=== PATIENT | male | born 1985 | race American Indian/Alaskan Native ===

== ENCOUNTER 2017-07-14 09:28 | Emergency (ER) | payer MEDICAID, OTHER ==
[2017-07-14 09:44] VITALS: BP 124/86; PULSE 84; RESP 18; TEMP 98.5; O2SAT 100; BMI 32.3
--- NOTE | 2017-07-14 10:07 | C.PDOC ---
History Of Present Illness 32 y/o male presents to the ER for evaluation of 2 different bumps on his penis which have been present for the last 2 days. Patient states that he had unprotected sex about 1 and 1/2 weeks ago and he found out that the woman had an STD. Patient denies having fever, abdominal pain, dysuria, hematuria and penile discharge. Time Seen by Provider: 07/14/17 09:37 Chief Complaint (Nursing): Male Genitourinary History Per: Patient History/Exam Limitations: no limitations Onset/Duration Of Symptoms: Days Current Symptoms Are (Timing): Still Present Severity: Moderate Past Medical History Reviewed: Historical Data, Nursing Documentation, Vital Signs Vital Signs: Last Vital Signs Temp 98.5 F 07/14/17 09:35 Pulse 84 07/14/17 09:35 Resp 18 07/14/17 11:04 BP 124/86 07/14/17 09:35 Pulse Ox 100 07/14/17 13:28 - Medical History PMH: No Chronic Diseases Surgical History: No Surg Hx Family History: States: No Known Family Hx - Social History Hx Alcohol Use: Yes Hx Substance Use: No - Immunization History Hx Tetanus Toxoid Vaccination: No Hx Influenza Vaccination: No Hx Pneumococcal Vaccination: No Review Of Systems Except As Marked, All Systems Reviewed And Found Negative. Constitutional: Negative for: Fever, Chills Genitourinary: Positive for: Other (2 bumps on penis). Negative for: Dysuria, Hematuria, Penile Discharge Physical Exam - Physical Exam Appears: Non-toxic, No Acute Distress, Other (comfortable) Skin: Normal Color, Warm Head: Atraumatic, Normacephalic Eye(s): bilateral: Normal Inspection, PERRL Nose: Normal Oral Mucosa: Moist Neck: Supple Chest: Symmetrical Cardiovascular: Rhythm Regular Respiratory: Normal Breath Sounds, No Accessory Muscle Use, No Rales, No Rhonchi , No Wheezing Gastrointestinal/Abdominal: Normal Exam, Soft, No Tenderness Male Genital: Normal Inspection, No Testicular Tenderness, Other (ingrown hair on left side of penis, no vesicular lesions, no warts, no penile discharge) Extremity: Normal ROM Neurological/Psych: Oriented x3, Normal Speech, Normal Cognition, Normal Motor, Normal Sensation ED Course And Treatment O2 Sat by Pulse Oximetry: 100 (RA) Pulse Ox Interpretation: Normal Progress Note: Patient given Rocephin. UA ordered. Patient discharged with prescription for Rocephin and told to follow up with doctor in 1-2 days. Disposition Counseled Patient/Family Regarding: Diagnosis, Need For Followup, Rx Given - Disposition Referrals: [facility] [Outside] Disposition: HOME/ ROUTINE Disposition Time: 10:15 Condition: STABLE Additional Instructions: FOLLOW UP WITH YOUR DOCTOR/CLINIC IN 1-2 DAYS USE MEDICATION DIRECTED - NO ALCOHOL WHILE TAKING FLAGYL HAVE SEXUAL PARTNER(S) TESTED/TREATED NO SEX FOR 1 WEEK RETURN TO ER IF SYMPTOMS WORSEN Prescriptions: metroNIDAZOLE [Flagyl] 500 mg PO BID #14 tab Instructions: Nonspecific Urethritis in Men (ED) Forms: [employer] (Estonian) Print Language: JAPANESE - Clinical Impression Clinical Impression: STD exposure - Scribe Statement The provider has reviewed the documentation as recorded by the Ashlyibe Laurence Turner Provider Attestation: All medical record entries made by the Scribe were at my direction and personally dictated by me. I have reviewed the chart and agree that the record accurately reflects my personal performance of the history, physical exam, medical decision making, and the department course for this patient. I have also personally directed, reviewed, and agree with the discharge instructions and disposition.
[2017-07-14 10:11] LABS: URINE BILIRUBIN NEGATIVE (NEGATIVE); URINE BLOOD NEGATIVE (NEGATIVE); URINE CLARITY Clear (Clear); URINE COLOR Yellow (YELLOW); URINE GLUCOSE (UA) NORMAL (Normal); URINE LEUKOCYTE ESTERASE NEG Leu/uL (Negative); URINE NITRATE NEGATIVE (NEGATIVE); URINE PROTEIN NEGATIVE (NEGATIVE); URINE UROBILINOGEN NORMAL mg/dL (0.2-1.0)
[2017-07-14] MEDS ORDERED: cefTRIAXone 250 MG in Lidocaine Hydrochloride 1% 0.9 ML IM ONE (10:45)
[2017-07-14] MEDS ORDERED: cefTRIAXone (Rocephin) 250 mg Inj IM ONE (10:45)
== END 2017-07-14 11:05 | disposition home or self-care (01) ==
LOC: C.ER 09:28
DX: Z20.2 Contact with and (suspected) exposure to infections with a predominantly sexual mode of transmission (principal)